=== PATIENT | male | born 1980 | race Caucasian/White ===

== ENCOUNTER 2017-07-29 16:38 | Inpatient (IN) | payer MEDICAID, SELFPAY ==
--- NOTE | 2017-07-29 16:59 | NURSING ---
Arrived to Room 213 with mother at side. Report obtained from Ursula Landin at this time.
[2017-07-29 17:31] VITALS: BP 117/65; PULSE 84; RESP 18; TEMP 36.8; BMI 21.5
[2017-07-29 17:57] VITALS: BP 117/65; PULSE 84; RESP 20; TEMP 36.8
--- NOTE | 2017-07-29 18:25 | PCM.HP.STD ---
Problem List (1) Polysubstance (including opioids) dependence, daily use Status: Acute (2) Methamphetamine use Status: Chronic (3) Mild benzodiazepine use disorder Status: Chronic (4) Nicotine dependence Status: Chronic History of Present Illness Date of Admission: 07/29/17 Chief Complaint: Admitted for heroin withdrawal The patient is a 36 year old M with history of polysubstance use is being admitted through [facility] for stabilization of acute opioid withdrawal. Patient has history of heroin use since age of 24 years, 2 g daily; last used today. Patient had other illicit drug use including methamphetamine 1 g IV daily since 19 years of age, occasional benzodiazepine Xanax 0.5 mg and alcohol use. Patient drinks about 2-3 times a week about 10 drinks, each time since age of use18 years. Patient complaint of restlessness, tremors, sweating, gooseflesh 2-3 times loose bowel movement, diarrhea and intense thirst and dehydration. Feels also muscle aches, nausea cold and clammy skin. [] Past Medical History Past Medical History (Chronic Problems): Chronic Problems Methamphetamine use (Chronic) Mild benzodiazepine use disorder (Chronic) Nicotine dependence (Chronic) Allergies No Known Allergies Allergy (Verified 07/29/17 17:37) Smoking Status: Current some day smoker Alcohol: Heavy Drugs: Heroin, Marijuana - *Family History Paternal History Items: No pertinent history Review of Systems Constitutional: Reports: Malaise, Weakness. Denies: Chills, Fever, Weight Change HEENT: Denies: Head Aches, Sinus Congestion, Sinus Drainage Cardiovascular: Denies: Chest Pain, Palpitations Respiratory: Denies: Cough, Shortness of breath at rest, Sputum production Gastrointestinal: Reports: Diarrhea, Nausea. Denies: Abdominal Pain, Hematemesis, Hematochezia, Melena, Vomiting Genitourinary: Denies: Dysuria, Incontinence Musculoskeletal: Reports: Muscle pain. Denies: Joint Pain, Joint Tenderness Skin: Denies: Rash, Wounds Neurological: Denies: Numbness, Tingling, Focal weakness Psychiatric: Denies: Anxiety, Depression, Homicidal Ideations, Suicidal Ideations Hematologic/ Lymphatic: Denies: Easy Bruising, Easy Bleeding VTE Information - Inpt Only VTE Present on Admission: No VTE Mechan Device Prophylaxis: None VTE Pharm Prophylaxis ordered?: No Reason prophylaxis not ordered:: Procedure Not Indicated - Low risk Patient Problems: Active and Suspected Problems Polysubstance (including opioids) dependence, daily use (Acute) - Physical Exam General: Alert, Oriented x3, Cooperative HEENT: Atraumatic, PERRLA, EOMI, Normocephalic Oral: Moist Mucosa Neck: Supple, No JVD, Negative Carotid Bruits Lungs: Clear to auscultation, Normal air movement, No wheeze, No rales Cardiovascular: Regular rate, Regular Rhythm, Normal S1, Normal S2, No murmurs Abdomen: Bowel Sounds Present, Soft, Non Tender, Non-Distended Extremities: No edema, Capillary Refill Less than 3 Seconds Skin: No rashes, No breakdown, - - Needle scar hernandez present over bilateral antecubital region Musculoskeletal: No Tenderness to Palpation of Joints or Extremities Neurological: Cranial nerves II-XII grossly intact Psych/Mental Status: Anxious, Restless Vital Signs Temp Pulse Resp BP 98.2 F 84 20 H 117/65 07/29/17 17:57 07/29/17 17:57 07/29/17 17:57 07/29/17 17:57 Weight: 150 lb Body Mass Index (BMI) 21.5 Assessment/Plan Active and Suspected Problems Polysubstance (including opioids) dependence, daily use (Acute) The patient is a 36 year old M with history of polysubstance use is being admitted through [facility] program for stabilization of acute opioid withdrawal. Patient has history of heroin use since age of 24 years, 2 g daily; last used today. Patient had other illicit drug use including methamphetamine 1 g IV daily since 19 years of age, occasional benzodiazepine Xanax 0.5 mg and alcohol use. Patient drinks about 2-3 times a week about 10 drinks, each time since age of use18 years. Patient complaint of restlessness, tremors, sweating, gooseflesh 2-3 times loose bowel movement, diarrhea and intense thirst and dehydration. Feels also muscle aches, nausea cold and clammy skin. 1. Acute heroin/opioids withdrawal: Patient is being admitted on [facility] protocol for stabilization. Labs ordered including U tox, hepatitis panel, HIV, B1, B12 and folic acid. CINA 15 2. Polysubstance use including methamphetamine, occasional benzodiazepine, marijuana and chronic alcohol use and dependence: On medication protocol as per [facility]. [place] protocol 3. Chronic alcohol use and dependence: Patient denies hallucinations, seizure. 4. Chronic nicotine use and dependence: On nicotine patch DVT prophylaxis low risk; no prophylaxis indicated. [] Code Visit Inpatient E&M: 14875 Init Hosp L3
--- NOTE | 2017-07-29 18:35 | HP.PCM_ITS ---
Problem List (1) Polysubstance (including opioids) dependence, daily use Status: Acute (2) Methamphetamine use Status: Chronic (3) Mild benzodiazepine use disorder Status: Chronic (4) Nicotine dependence Status: Chronic History of Present Illness Date of Admission: 07/29/17 Chief Complaint: Admitted for heroin withdrawal The patient is a 36 year old M with history of polysubstance use is being admitted through [facility] for stabilization of acute opioid withdrawal. Patient has history of heroin use since age of 24 years, 2 g daily ; last used today. Patient had other illicit drug use including methamphetamine 1 g IV daily since 19 years of age, occasional benzodiazepine Xanax 0.5 mg and alcohol use. Patient drinks about 2-3 times a week about 10 drinks, each time since age of use18 years. Patient complaint of restlessness, tremors, sweating, gooseflesh 2-3 times loose bowel movement, diarrhea and intense thirst and dehydration. Feels also muscle aches, nausea cold and clammy skin. [] Past Medical History Past Medical History (Chronic Problems): Chronic Problems Methamphetamine use (Chronic) Mild benzodiazepine use disorder (Chronic) Nicotine dependence (Chronic) Allergies No Known Allergies Allergy (Verified 07/29/17 17:37) Smoking Status: Current some day smoker Alcohol: Heavy Drugs: Heroin, Marijuana - *Family History Paternal History Items: No pertinent history Review of Systems Constitutional: Reports: Malaise, Weakness. Denies: Chills, Fever, Weight Change HEENT: Denies: Head Aches, Sinus Congestion, Sinus Drainage Cardiovascular: Denies: Chest Pain, Palpitations Respiratory: Denies: Cough, Shortness of breath at rest, Sputum production Gastrointestinal: Reports: Diarrhea, Nausea. Denies: Abdominal Pain, Hematemesis, Hematochezia, Melena, Vomiting Genitourinary: Denies: Dysuria, Incontinence Musculoskeletal: Reports: Muscle pain. Denies: Joint Pain, Joint Tenderness Skin: Denies: Rash, Wounds Neurological: Denies: Numbness, Tingling, Focal weakness Psychiatric: Denies: Anxiety, Depression, Homicidal Ideations, Suicidal Ideations Hematologic/ Lymphatic: Denies: Easy Bruising, Easy Bleeding VTE Information - Inpt Only VTE Present on Admission: No VTE Mechan Device Prophylaxis: None VTE Pharm Prophylaxis ordered?: No Reason prophylaxis not ordered:: Procedure Not Indicated - Low risk Patient Problems: Active and Suspected Problems Polysubstance (including opioids) dependence, daily use (Acute) - Physical Exam General: Alert, Oriented x3, Cooperative HEENT: Atraumatic, PERRLA, EOMI, Normocephalic Oral: Moist Mucosa Neck: Supple, No JVD, Negative Carotid Bruits Lungs: Clear to auscultation, Normal air movement, No wheeze, No rales Cardiovascular: Regular rate, Regular Rhythm, Normal S1, Normal S2, No murmurs Abdomen: Bowel Sounds Present, Soft, Non Tender, Non-Distended Extremities: No edema, Capillary Refill Less than 3 Seconds Skin: No rashes, No breakdown, - - Needle scar hernandez present over bilateral antecubital region Musculoskeletal: No Tenderness to Palpation of Joints or Extremities Neurological: Cranial nerves II-XII grossly intact Psych/Mental Status: Anxious, Restless Vital Signs Temp Pulse Resp BP 98.2 F 84 20 H 117/65 07/29/17 17:57 07/29/17 17:57 07/29/17 17:57 07/29/17 17:57 Weight: 150 lb Body Mass Index (BMI) 21.5 Assessment/Plan Active and Suspected Problems Polysubstance (including opioids) dependence, daily use (Acute) The patient is a 36 year old M with history of polysubstance use is being admitted through [facility] program for stabilization of acute opioid withdrawal. Patient has history of heroin use since age of 24 years, 2 g daily ; last used today. Patient had other illicit drug use including methamphetamine 1 g IV daily since 19 years of age, occasional benzodiazepine Xanax 0.5 mg and alcohol use. Patient drinks about 2-3 times a week about 10 drinks, each time since age of use18 years. Patient complaint of restlessness, tremors, sweating, gooseflesh 2-3 times loose bowel movement, diarrhea and intense thirst and dehydration. Feels also muscle aches, nausea cold and clammy skin. 1. Acute heroin/opioids withdrawal: Patient is being admitted on [facility] protocol for stabilization. Labs ordered including U tox, hepatitis panel, HIV , B1, B12 and folic acid. CINA 15 2. Polysubstance use including methamphetamine, occasional benzodiazepine, marijuana and chronic alcohol use and dependence: On medication protocol as per [facility]. [place] protocol 3. Chronic alcohol use and dependence: Patient denies hallucinations, seizure. 4. Chronic nicotine use and dependence: On nicotine patch DVT prophylaxis low risk; no prophylaxis indicated. [] Code Visit Inpatient E&M: 01347 Init Hosp L3
[2017-07-29] MEDS: Buprenorphine HCl 2 MG TAB.SUBL SL (18:54)
[2017-07-29] MEDS: chlordiazePOXIDE 25 MG Capsule PO ×2 (18:55→21:53)
[2017-07-29] MEDS: Dicyclomine 10 MG Capsule 20 MG PO (18:56)
[2017-07-29] MEDS: cloNIDine HCl 0.1 MG Tablet PO ×2 (18:56→21:06)
[2017-07-29] MEDS: Methocarbamol 750 MG Tablet PO (18:57)
[2017-07-29] MEDS: QUEtiapine 25 MG Tablet PO (18:57)
--- NOTE | 2017-07-29 18:59 | NURSING ---
Seizure pads on bed and telemonitor on pt at this time
[2017-07-29 19:36] VITALS: PULSE 73
[2017-07-29 19:44] LABS: Absolute Lymphocyte Count 2.24 X10^3/ul (0.83-4.51); Absolute Neutrophil Count 3.9 X10^3/uL (2.0-7.7); Basophil# 0.05 X10^3/uL; Basophil% 0.7 % (0-1); Eosinophils% 2.8 % (0-5); Hematocrit 40.6 % (40-54); Hemoglobin 13.6 g/dl (13.0-16.5); Lymphocyte # 2.24 X10^3/ul (4.0); Lymphocyte % 31.3 % (19-41); Mean Corp Hgb Conc 33.5 g/gl (32-36); Mean Corpuscular Hgb 28.7 pg (27.0-32.0); Mean Corpuscular Volume 85.7 fL (80-94); Mean Platelet Vol. 9.3 fl (6.2-12.0); Monocyte# 0.71 X10^3/uL; Monocyte% 9.9 % (0-10); Neutrophil # 3.94 X10^3/uL (2.7-7.7); Neutrophil % 55.2 % (47-70); Platelet Count 254 K/mm3 (150-450); RBC Distribution Width CV 13.7 % (11.6-14.6); RBC Distribution Width SD 42.6 fl (35.1-43.9); Red Blood Count 4.74 M/mm3 (4.6-6.2); White Blood Count 7.2 K/mm3 (4.4-11.0)
[2017-07-29 19:46] LABS: POSITIVE COUNT NO; POSITIVE DIFFERENTIAL NO; POSITIVE MORPHOLOGY NO
[2017-07-29 19:52] LABS: International Normalized Ratio 0.9; Prothrombin Time (Protime)PT. 12.1 SECONDS (11.7-14.9)
[2017-07-29 20:01] LABS: Alcohol, Blood (Medical)-Serum < 3.0 mg/dL
[2017-07-29 20:15] LABS: ALB/GLOB Ratio 0.8 RATIO (0.9-2.4); AST(SGOT) 256 U/L (15-37); Alanine Aminotransfer ALT/SGPT 507 U/L (16-61); Albumin, Serum 3.3 g/dL (3.2-5.0); Alkaline Phosphatase 95 U/L (45-117); Amylase 54 U/L (25-115); Anion Gap 5 (5-15); BUN 22 mg/dL (7-18); BUN/Creat Ratio 30.9 RATIO (10-20); Calcium,Total 8.7 mg/dL (8.5-10.1); Chloride 103 mmol/L (98-107); Creatinine, Serum 0.71 mg/dL (0.70-1.30); EST Glomerular Filtration Rate 134 mL/min (>60); Est Glom Filt Rate - Afr Amer 162 mL/min (>60); Estimated Creatinine Clearance 141.08 ml/min; Globulin 4.1 g/dL (2.2-4.2); Glucose 86 mg/dL (74-106); Lipase 132 U/L (73-393); Potassium 3.8 mmol/L (3.5-5.1); Protein, Total 7.4 g/dL (6.4-8.2); Sodium Level 140 mmol/L (136-145)
[2017-07-29 20:45] VITALS: BP 112/60; PULSE 77; RESP 18; TEMP 37; O2SAT 98
[2017-07-29 20:46] VITALS: BP 112/60; PULSE 77; RESP 18; TEMP 37
[2017-07-29 20:50] VITALS: PULSE 77; RESP 18; O2SAT 98
[2017-07-29 20:52] LABS: HIV - WCH Non-Reactive (Nonreactive); Vitamin B12 520 pg/mL (211-911)
[2017-07-29] MEDS: Pramipexole Di-HCl 0.25 MG Tablet PO (21:06)
[2017-07-29] MEDS: traZODone 50 MG Tablet PO (21:06)
[2017-07-29] MEDS: Ibuprofen 600 MG Tablet PO (21:06)
[2017-07-29] MEDS: Ondansetron ODT 4 MG Tablet PO (21:06)
--- NOTE | 2017-07-29 21:55 | NURSING ---
pt refusing tele monitor. This RN explained importance and reasoning behind the monitor but pt still refused.
[2017-07-29 22:55] LABS: Amphetamine Urine VISTA POSITIVE (<1000 ng/mL); Barbiturate Urine VISTA POSITIVE (< 200 ng/mL); Benzodiazepine Urine VISTA NEGATIVE (< 200 ng/mL); Cocaine Urine VISTA NEGATIVE (< 300 ng/mL); Ecstacy Urine VISTA NEGATIVE (< 500 ng/mL); Methadone Urine VISTA NEGATIVE (< 300 ng/mL); PCP Urine VISTA NEGATIVE (< 25 ng/mL); THC Urine VISTA POSITIVE (< 50 ng/mL); Vista UDS pH Range 8
[2017-07-30] VITALS (7 sets, daily range): BP systolic 94–126; BP diastolic 45–87; PULSE 58–87; RESP 16–20; TEMP 36.2–36.7; O2SAT 100
[2017-07-30] MEDS: Buprenorphine HCl 2 MG TAB.SUBL SL ×3 (02:19→18:34)
[2017-07-30] MEDS: chlordiazePOXIDE 25 MG Capsule PO ×5 (02:19→19:54)
[2017-07-30] MEDS: Methocarbamol 750 MG Tablet PO ×3 (02:19→21:21)
[2017-07-30] MEDS: Ondansetron ODT 4 MG Tablet PO (06:12)
--- NOTE | 2017-07-30 08:12 | PCM.PN.HOSP ---
Patient Problems: Active and Suspected Problems Polysubstance (including opioids) dependence, daily use (Acute) Subjective: Patient is a 36-year-old gentleman with history of opioid dependence and chronic alcohol abuse admitted with acute opioid withdrawal admitted to a regular nursing floor where patient is being managed with Subutex for medical stabilization 07/30/2017 patient seen complains of feeling groggy this a.m. Also complains of nausea but no vomiting Objective: GENERAL: cooperative HEENT: Clear conjunctiva, NECK; supple, normal thyroid, CHEST: Clear to auscultation bilaterally, HEART: Regular S1 S2, ABDOMEN: soft, non-tender, normoactive bowel sounds, RECTAL: deferred EXTREMITIES: No edema, no clubbing, no cyanosis. MANAGER INTEGRATION: Awake, no lateralizing signs. SKIN: Extensive tattoos Vitals/I&O's: Vital Signs Temp Pulse Resp BP Pulse Ox 97.4 F L 77 18 94/59 L 98 07/30/17 06:00 07/30/17 06:00 07/30/17 06:00 07/30/17 06:00 07/29/17 20:50 Oxygen Delivery Method Room Air Weight: 68.039 kg Body Mass Index (BMI) 21.5 Intake and Output for Last 24 Hours 07/28/17 07/29/17 07/30/17 23:59 23:59 23:59 Intake Total 840 / 840 Balance 840 / 840 Laboratory Results 07/29/17 19:05: PT 12.1, INR 0.9 07/29/17 19:05: Sodium 140, Potassium 3.8, Chloride 103, Carbon Dioxide 32.0, Anion Gap 5, BUN 22 H, Creatinine 0.71, Estim Creat Clear Calc 141.08, Est GFR (MDRD) Af Amer 162, Est GFR (MDRD) Non-Af 134, BUN/Creatinine Ratio 30.9 H, Glucose 86, Calcium 8.7, Magnesium 2.0, Total Bilirubin 0.20, AST 256 H, ALT 507 H, Alkaline Phosphatase 95, Total Protein 7.4, Albumin 3.3, Globulin 4.1, Albumin/Globulin Ratio 0.8 L, Amylase 54, Lipase 132, Folate 19.30 07/29/17 19:05: Ethyl Alcohol < 3.0 07/29/17 19:05: WBC 7.2, RBC 4.74, Hgb 13.6, Hct 40.6, MCV 85.7, MCH 28.7, MCHC 33.5, RDW 13.7, RDW Differential 42.6, Plt Count 254, MPV 9.3, Immature Gran % (Auto) 0.100, Neut % (Auto) 55.2, Lymph % (Auto) 31.3, [place] % (Auto) 9.9, Eos % (Auto) 2.8, Baso % (Auto) 0.7, Absolute Neuts (auto) 3.9, Absolute Lymphs (auto) 2.24, Total Counted Not Reportable 07/29/17 19:05: Vitamin B12 520, HIV 1&2 Antibody Non-Reactive 07/29/17 19:05: Whole Bld Vitamin B1 Pending, Hepatitis A IgM Ab Pending, Hep Bs Antigen Pending, Hep B Core IgM Ab Pending, Hepatitis C Ab (EIA) Pending 07/29/17 21:45: Urine Opiates Screen POSITIVE H, Urine Methadone Screen NEGATIVE, Ur Barbiturates Screen POSITIVE H, Ur Phencyclidine Scrn NEGATIVE, Ur Amphetamines Screen POSITIVE H, U Methamphetamin-MDMA NEGATIVE, U Benzodiazepines Scrn NEGATIVE, Urine Cocaine Screen NEGATIVE, U Cannabinoids Screen POSITIVE H, Ur Drug Screen Comment Current Medications Acetaminophen (Tylenol) 500 mg PO Q4H PRN PRN PRN Reason: Temp > 100.4 F Al Hydroxide/Mg Hydroxide (Mylanta Ii) 30 ml PO Q6H PRN PRN PRN Reason: dyspesia Bisacodyl (Dulcolax) 10 mg RECTAL DAILY PRN PRN Reason: Constipation Buprenorphine HCl (Buprenorphine Hcl) 4 mg SL Q8H GILBERTO PRN Reason: Taper Stop: 08/01/17 22:29 Last Admin: 07/30/17 02:19 Dose: 4 mg Chlordiazepoxide (Librium) 25 mg PO Q6H PRN PRN PRN Reason: Anxiety Score 2-3/3 Chlordiazepoxide (Librium) 25 mg PO Q4H [facility] Stop: 07/30/17 14:31 Last Admin: 07/30/17 06:08 Dose: 25 mg Clonidine (Catapres) 0.1 mg PO Q2H PRN PRN PRN Reason: Hot/Cold Sweats or Anxiety Last Admin: 07/29/17 21:06 Dose: 0.1 mg Dicyclomine HCl (Bentyl) 20 mg PO Q6H PRN PRN PRN Reason: Abdomnial Discomfort Last Admin: 07/29/17 18:56 Dose: 20 mg Folic Acid (Folic Acid) 1 mg PO DAILY@0800 [facility] Hydroxyzine HCl (Vistaril) 50 mg IM Q6H PRN PRN PRN Reason: Breakthrough Anxiety Hydroxyzine Pamoate (Vistaril) 50 mg PO Q6H PRN PRN PRN Reason: Mild Anxiety (score 1/3) Last Admin: 07/29/17 21:06 Dose: 50 mg Ibuprofen (Motrin) 600 mg PO Q8H PRN PRN PRN Reason: Mild-Moderate Pain (1-5/10) Last Admin: 07/29/17 21:06 Dose: 600 mg Loperamide HCl (Imodium) 2 - 4 mg PO UD PRN PRN Reason: LOOSE STOOLS Methocarbamol (Methocarbamol) 750 mg PO Q6H PRN PRN PRN Reason: Muscle Aches Last Admin: 07/30/17 02:19 Dose: 750 mg Multivitamins/Minerals (Multivitamin With Minerals) [facility] Nicotine (Nicoderm Cq (Pbkc)) 21 mg TRANSDERM. DAILY [facility] Last Admin: 07/29/17 18:56 Dose: 21 mg Ondansetron HCl (Zofran Odt) 4 mg PO Q6H PRN PRN PRN Reason: NAUSEA Last Admin: 07/30/17 06:12 Dose: 4 mg Pramipexole Dihydrochloride (Mirapex) 0.25 mg PO Q12H PRN PRN PRN Reason: Restless Legs Last Admin: 07/29/17 21:06 Dose: 0.25 mg Quetiapine Fumarate (Seroquel) 25 mg PO Q6H PRN PRN PRN Reason: Moderate Anxiety (score 2/3) Last Admin: 07/29/17 18:57 Dose: 25 mg Senna (Senokot) 1 tablet PO QHS PRN PRN Reason: Constipation Sodium Chloride () 5 - 30 ml IV UD PRN PRN Reason: SALINE FLUSH Thiamine HCl (Vitamin B1) 100 mg PO DAILYCM [facility] Trazodone HCl (Desyrel) 50 mg PO QHS GILBERTO Last Admin: 07/29/17 21:06 Dose: 50 mg Assessment/Plan Active and Suspected Problems Polysubstance (including opioids) dependence, daily use (Acute) Patient is a 36-year-old gentleman with history of opioid dependence and chronic alcohol abuse admitted with acute opioid withdrawal admitted to a regular nursing floor where patient is being managed with Subutex for medical stabilization 1. Acute opioid withdrawal admitted to regular nursing floor for medical stabilization using Subutex X Chronic alcohol use and dependence placed on DT precautions 3. Polysubstance abuse including methamphetamine benzos Castellano chronic alcohol use as well as O. Patient was counseled on cessation 4. Tobacco dependence counseled on cessation, offered nicotine patch for tobacco cravings 5. DVT prophylaxis low risk did encourage early ambulation Code Visit Inpatient E&M: 15468 Subs Hosp L3
--- NOTE | 2017-07-30 08:19 | PN_ITS ---
Patient Problems: Active and Suspected Problems Polysubstance (including opioids) dependence, daily use (Acute) Subjective: Patient is a 36-year-old gentleman with history of opioid dependence and chronic alcohol abuse admitted with acute opioid withdrawal admitted to a regular nursing floor where patient is being managed with Subutex for medical stabilization 07/30/2017 patient seen complains of feeling groggy this a.m. Also complains of nausea but no vomiting Objective: GENERAL: cooperative HEENT: Clear conjunctiva, NECK; supple, normal thyroid, CHEST: Clear to auscultation bilaterally, HEART: Regular S1 S2, ABDOMEN: soft, non-tender, normoactive bowel sounds, RECTAL: deferred EXTREMITIES: No edema, no clubbing, no cyanosis. CHANNEL WORKER: Awake, no lateralizing signs. SKIN: Extensive tattoos Vitals/I&O's: Vital Signs Temp Pulse Resp BP Pulse Ox 97.4 F L 77 18 94/59 L 98 07/30/17 06:00 07/30/17 06:00 07/30/17 06:00 07/30/17 06:00 07/29/17 20:50 Oxygen Delivery Method Room Air Weight: 68.039 kg Body Mass Index (BMI) 21.5 Intake and Output for Last 24 Hours 07/28/17 07/29/17 07/30/17 23:59 23:59 23:59 Intake Total 840 / 840 Balance 840 / 840 Laboratory Results 07/29/17 19:05: PT 12.1, INR 0.9 07/29/17 19:05: Sodium 140, Potassium 3.8, Chloride 103, Carbon Dioxide 32.0, Anion Gap 5, BUN 22 H, Creatinine 0.71, Estim Creat Clear Calc 141.08, Est GFR ( MDRD) Af Amer 162, Est GFR (MDRD) Non-Af 134, BUN/Creatinine Ratio 30.9 H, Glucose 86, Calcium 8.7, Magnesium 2.0, Total Bilirubin 0.20, AST 256 H, ALT 507 H, Alkaline Phosphatase 95, Total Protein 7.4, Albumin 3.3, Globulin 4.1, Albumin/Globulin Ratio 0.8 L, Amylase 54, Lipase 132, Folate 19.30 07/29/17 19:05: Ethyl Alcohol < 3.0 07/29/17 19:05: WBC 7.2, RBC 4.74, Hgb 13.6, Hct 40.6, MCV 85.7, MCH 28.7, MCHC 33.5, RDW 13.7, RDW Differential 42.6, Plt Count 254, MPV 9.3, Immature Gran % ( Auto) 0.100, Neut % (Auto) 55.2, Lymph % (Auto) 31.3, [place] % (Auto) 9.9, Eos % ( Auto) 2.8, Baso % (Auto) 0.7, Absolute Neuts (auto) 3.9, Absolute Lymphs (auto) 2.24, Total Counted Not Reportable 07/29/17 19:05: Vitamin B12 520, HIV 1&2 Antibody Non-Reactive 07/29/17 19:05: Whole Bld Vitamin B1 Pending, Hepatitis A IgM Ab Pending, Hep Bs Antigen Pending, Hep B Core IgM Ab Pending, Hepatitis C Ab (EIA) Pending 07/29/17 21:45: Urine Opiates Screen POSITIVE H, Urine Methadone Screen NEGATIVE , Ur Barbiturates Screen POSITIVE H, Ur Phencyclidine Scrn NEGATIVE, Ur Amphetamines Screen POSITIVE H, U Methamphetamin-MDMA NEGATIVE, U Benzodiazepines Scrn NEGATIVE, Urine Cocaine Screen NEGATIVE, U Cannabinoids Screen POSITIVE H, Ur Drug Screen Comment Current Medications Acetaminophen (Tylenol) 500 mg PO Q4H PRN PRN PRN Reason: Temp > 100.4 F Al Hydroxide/Mg Hydroxide (Mylanta Ii) 30 ml PO Q6H PRN PRN PRN Reason: dyspesia Bisacodyl (Dulcolax) 10 mg RECTAL DAILY PRN PRN Reason: Constipation Buprenorphine HCl (Buprenorphine Hcl) 4 mg SL Q8H GILBERTO PRN Reason: Taper Stop: 08/01/17 22:29 Last Admin: 07/30/17 02:19 Dose: 4 mg Chlordiazepoxide (Librium) 25 mg PO Q6H PRN PRN PRN Reason: Anxiety Score 2-3/3 Chlordiazepoxide (Librium) 25 mg PO Q4H [facility] Stop: 07/30/17 14:31 Last Admin: 07/30/17 06:08 Dose: 25 mg Clonidine (Catapres) 0.1 mg PO Q2H PRN PRN PRN Reason: Hot/Cold Sweats or Anxiety Last Admin: 07/29/17 21:06 Dose: 0.1 mg Dicyclomine HCl (Bentyl) 20 mg PO Q6H PRN PRN PRN Reason: Abdomnial Discomfort Last Admin: 07/29/17 18:56 Dose: 20 mg Folic Acid (Folic Acid) 1 mg PO DAILY@0800 [facility] Hydroxyzine HCl (Vistaril) 50 mg IM Q6H PRN PRN PRN Reason: Breakthrough Anxiety Hydroxyzine Pamoate (Vistaril) 50 mg PO Q6H PRN PRN PRN Reason: Mild Anxiety (score 1/3) Last Admin: 07/29/17 21:06 Dose: 50 mg Ibuprofen (Motrin) 600 mg PO Q8H PRN PRN PRN Reason: Mild-Moderate Pain (1-5/10) Last Admin: 07/29/17 21:06 Dose: 600 mg Loperamide HCl (Imodium) 2 - 4 mg PO UD PRN PRN Reason: LOOSE STOOLS Methocarbamol (Methocarbamol) 750 mg PO Q6H PRN PRN PRN Reason: Muscle Aches Last Admin: 07/30/17 02:19 Dose: 750 mg Multivitamins/Minerals ([facility]ivitamin With Minerals) [facility] Nicotine (Nicoderm Cq (Pbkc)) 21 mg TRANSDERM. DAILY [facility] Last Admin: 07/29/17 18:56 Dose: 21 mg Ondansetron HCl (Zofran Odt) 4 mg PO Q6H PRN PRN PRN Reason: NAUSEA Last Admin: 07/30/17 06:12 Dose: 4 mg Pramipexole Dihydrochloride (Mirapex) 0.25 mg PO Q12H PRN PRN PRN Reason: Restless Legs Last Admin: 07/29/17 21:06 Dose: 0.25 mg Quetiapine Fumarate (Seroquel) 25 mg PO Q6H PRN PRN PRN Reason: Moderate Anxiety (score 2/3) Last Admin: 07/29/17 18:57 Dose: 25 mg Senna (Senokot) 1 tablet PO QHS PRN PRN Reason: Constipation Sodium Chloride () 5 - 30 ml IV UD PRN PRN Reason: SALINE FLUSH Thiamine HCl (Vitamin B1) 100 mg PO DAILYCM [facility] Trazodone HCl (Desyrel) 50 mg PO QHS GILBERTO Last Admin: 07/29/17 21:06 Dose: 50 mg Assessment/Plan Active and Suspected Problems Polysubstance (including opioids) dependence, daily use (Acute) Patient is a 36-year-old gentleman with history of opioid dependence and chronic alcohol abuse admitted with acute opioid withdrawal admitted to a regular nursing floor where patient is being managed with Subutex for medical stabilization 1. Acute opioid withdrawal admitted to regular nursing floor for medical stabilization using Subutex X Chronic alcohol use and dependence placed on DT precautions 3. Polysubstance abuse including methamphetamine benzos Castellano chronic alcohol use as well as O. Patient was counseled on cessation 4. Tobacco dependence counseled on cessation, offered nicotine patch for tobacco cravings 5. DVT prophylaxis low risk did encourage early ambulation Code Visit Inpatient E&M: 22375 Subs Hosp L3
[2017-07-30] MEDS: Thiamine Hydrochloride 100 MG Tablet PO (08:28)
[2017-07-30] MEDS: Multivitamins,Ther W-Minerals Tablet 1 TABLET PO (08:28)
[2017-07-30] MEDS: Folic Acid 1 MG Tablet PO (08:28)
[2017-07-30] MEDS: Ibuprofen 600 MG Tablet PO (08:30)
[2017-07-30] MEDS: Acetaminophen 500 MG Tablet PO ×2 (13:42→21:22)
[2017-07-30] MEDS: Pramipexole Di-HCl 0.25 MG Tablet PO (18:44)
[2017-07-30] MEDS: traZODone 50 MG Tablet PO (21:20)
[2017-07-30] MEDS: Dicyclomine 10 MG Capsule 20 MG PO (21:21)
[2017-07-30] MEDS: cloNIDine HCl 0.1 MG Tablet PO (21:22)
[2017-07-30] MEDS: Senna Tablet 1 TABLET PO (21:39)
[2017-07-31] VITALS (9 sets, daily range): BP systolic 109–125; BP diastolic 58–76; PULSE 67–98; RESP 16–18; TEMP 36.4–37; O2SAT 97–99
[2017-07-31] MEDS: Buprenorphine HCl 2 MG TAB.SUBL SL ×3 (03:18→23:00)
--- NOTE | 2017-07-31 07:18 | PN_ITS ---
Patient Problems: Active and Suspected Problems Polysubstance (including opioids) dependence, daily use (Acute) Subjective: Patient was reported to be very anxious during the night Objective: GENERAL: cooperative HEENT: Clear conjunctiva, NECK; supple, normal thyroid, CHEST: Clear to auscultation bilaterally, HEART: Regular S1 S2, ABDOMEN: soft, non-tender, normoactive bowel sounds, RECTAL: deferred EXTREMITIES: No edema, no clubbing, no cyanosis. 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 SKIN: Extensive tattoos Vitals/I&O's: Vital Signs Temp Pulse Resp BP Pulse Ox 97.7 F L 67 18 109/58 L 97 07/31/17 03:13 07/31/17 03:13 07/31/17 03:13 07/31/17 03:13 07/31/17 03:16 Oxygen Delivery Method Room Air Weight: 68.039 kg Body Mass Index (BMI) 21.5 Intake and Output for Last 24 Hours 07/29/17 07/30/17 07/31/17 23:59 23:59 23:59 Intake Total 2190 / 2190 760 / 760 Balance 2190 / 2190 760 / 760 Current Medications Acetaminophen (Tylenol) 500 mg PO Q4H PRN PRN PRN Reason: Temp > 100.4 F Last Admin: 07/30/17 21:22 Dose: 500 mg Al Hydroxide/Mg Hydroxide (Mylanta Ii) 30 ml PO Q6H PRN PRN PRN Reason: dyspesia Bisacodyl (Dulcolax) 10 mg RECTAL DAILY PRN PRN Reason: Constipation Buprenorphine HCl (Buprenorphine Hcl) 2 mg SL Q8H GILBERTO PRN Reason: Taper Stop: 08/01/17 22:29 Last Admin: 07/31/17 03:18 Dose: 2 mg Chlordiazepoxide (Librium) 25 mg PO Q6H PRN PRN PRN Reason: Anxiety Score 2-3/3 Last Admin: 07/30/17 19:54 Dose: 25 mg Clonidine (Catapres) 0.1 mg PO Q2H PRN PRN PRN Reason: Hot/Cold Sweats or Anxiety Last Admin: 07/30/17 21:22 Dose: 0.1 mg Dicyclomine HCl (Bentyl) 20 mg PO Q6H PRN PRN PRN Reason: Abdomnial Discomfort Last Admin: 07/30/17 21:21 Dose: 20 mg Folic Acid (Folic Acid) 1 mg PO DAILY@0800 [facility] Last Admin: 07/30/17 08:28 Dose: 1 mg Hydroxyzine HCl (Vistaril) 50 mg IM Q6H PRN PRN PRN Reason: Breakthrough Anxiety Hydroxyzine Pamoate (Vistaril) 50 mg PO Q6H PRN PRN PRN Reason: Mild Anxiety (score 1/3) Last Admin: 07/30/17 21:22 Dose: 50 mg Ibuprofen (Motrin) 600 mg PO Q8H PRN PRN PRN Reason: Mild-Moderate Pain (1-5/10) Last Admin: 07/30/17 08:30 Dose: 600 mg Loperamide HCl (Imodium) 2 - 4 mg PO UD PRN PRN Reason: LOOSE STOOLS Methocarbamol (Methocarbamol) 750 mg PO Q6H PRN PRN PRN Reason: Muscle Aches Last Admin: 07/30/17 21:21 Dose: 750 mg [facility]ivitamins/Minerals ([facility]) [facility] Last Admin: 07/30/17 08:28 Dose: 1 tablet Nicotine (Nicoderm Cq (Pbkc)) 21 mg TRANSDERM. DAILY [facility] Last Admin: 07/30/17 11:04 Dose: 21 mg Ondansetron HCl (Zofran Odt) 4 mg PO Q6H PRN PRN PRN Reason: NAUSEA Last Admin: 07/30/17 06:12 Dose: 4 mg Pramipexole Dihydrochloride (Mirapex) 0.25 mg PO Q12H PRN PRN PRN Reason: Restless Legs Last Admin: 07/30/17 18:44 Dose: 0.25 mg Quetiapine Fumarate (Seroquel) 25 mg PO Q6H PRN PRN PRN Reason: Moderate Anxiety (score 2/3) Last Admin: 07/29/17 18:57 Dose: 25 mg Senna (Senokot) 1 tablet PO QHS PRN PRN Reason: Constipation Last Admin: 07/30/17 21:39 Dose: 1 tablet Sodium Chloride () 5 - 30 ml IV UD PRN PRN Reason: SALINE FLUSH Thiamine HCl ([facility]itamin B1) [facility] Last Admin: 07/30/17 08:28 Dose: 100 mg Trazodone HCl (Desyrel) 50 mg PO QHS [facility] Last Admin: 07/30/17 21:20 Dose: 50 mg Assessment/Plan Active and Suspected Problems Polysubstance (including opioids) dependence, daily use (Acute) Patient is a 36-year-old gentleman with history of opioid dependence and chronic alcohol abuse admitted with acute opioid withdrawal admitted to a regular nursing floor where patient is being managed with Subutex for medical stabilization 1. Acute opioid withdrawal admitted to regular nursing floor for medical stabilization using Subutex 2. Chronic alcohol use and dependence placed on DT precautions 3. Polysubstance abuse including methamphetamine benzos opioids as well as alcohol; patient was counseled on cessation 4. Tobacco dependence counseled on cessation, offered nicotine patch for tobacco cravings 5. DVT prophylaxis low risk did encourage early ambulation Code Visit Inpatient E&M: 44929 Subs Hosp L2
[2017-07-31] MEDS: Thiamine Hydrochloride 100 MG Tablet PO (09:54)
[2017-07-31] MEDS: Multivitamins,Ther W-Minerals Tablet 1 TABLET PO (09:54)
[2017-07-31] MEDS: Folic Acid 1 MG Tablet PO (09:54)
[2017-07-31] MEDS: Ibuprofen 600 MG Tablet PO ×2 (09:56→18:37)
[2017-07-31] MEDS: chlordiazePOXIDE 25 MG Capsule PO ×2 (09:56→20:18)
[2017-07-31] MEDS: Dicyclomine 10 MG Capsule 20 MG PO (09:56)
[2017-07-31] MEDS: Pramipexole Di-HCl 0.25 MG Tablet PO (10:05)
[2017-07-31] MEDS: Acetaminophen 500 MG Tablet PO (15:08)
[2017-07-31] MEDS: Methocarbamol 750 MG Tablet PO ×2 (15:08→23:11)
[2017-07-31] MEDS: cloNIDine HCl 0.1 MG Tablet PO (18:37)
[2017-07-31] MEDS: Senna Tablet 1 TABLET PO (20:18)
[2017-07-31] MEDS: QUEtiapine 25 MG Tablet PO (20:18)
[2017-07-31] MEDS: traZODone 50 MG Tablet PO (23:00)
[2017-08-01 03:55] VITALS: BP 112/56; PULSE 74; RESP 16; TEMP 36.7
[2017-08-01 08:32] VITALS: BP 115/77; PULSE 74; RESP 18; TEMP 36.5; O2SAT 99
[2017-08-01] MEDS: Folic Acid 1 MG Tablet PO (08:36)
[2017-08-01] MEDS: Multivitamins,Ther W-Minerals Tablet 1 TABLET PO (08:36)
[2017-08-01] MEDS: Thiamine Hydrochloride 100 MG Tablet PO (08:36)
[2017-08-01] MEDS: Ibuprofen 600 MG Tablet PO (08:36)
[2017-08-01] MEDS: Pramipexole Di-HCl 0.25 MG Tablet PO (08:37)
[2017-08-01 10:00] VITALS: BP 115/77; PULSE 74; RESP 18; TEMP 36.5
[2017-08-01] MEDS: Buprenorphine HCl 2 MG TAB.SUBL SL (10:33)
--- NOTE | 2017-08-01 11:29 | PCM.DC ---
- Discharge Diagnoses Current Active Problems: Current Active and Chronic Problems Polysubstance (including opioids) dependence, daily use (Acute) Methamphetamine use (Chronic) Mild benzodiazepine use disorder (Chronic) Nicotine dependence (Chronic) You will use the following diet at home:: Regular Discharge Activity: Return to Normal Activity Allergies/Adverse Reactions: Allergies No Known Allergies Allergy (Verified 07/29/17 17:37) Primary Care Physician: Care Physician,No Primary [Primary Care Provider] - Within 2 Weeks Proposed Discharge Date: 08/01/17
--- NOTE | 2017-08-01 11:33 | DS.PCM_ITS ---
Discharge Date and Diagnosis Date of Admission: 07/29/17 Date of Discharge: 08/01/17 - Primary Discharge Diagnosis Active and Suspected Problems Polysubstance (including opioids) dependence, daily use (Acute) - Secondary Discharge Diagnosis Chronic Problems Methamphetamine use (Chronic) Mild benzodiazepine use disorder (Chronic) Nicotine dependence (Chronic) Hospital Course and Treatment Summary of Care Provided: This is a 36 year-old male with past medical history of drug use disorder opiates and alcohol . Admitted to the hospital with symptoms of opiate withdrawal he was placed on the [facility] opiate withdrawal protocol. His symptoms have now resolved. The patient is being discharged and he will go to an inpatient drug rehabilitation program in [facility]. exam at the time of discharge; vital signs were stable. He was alert and oriented to time place and person. He did not appear to be any form of distress. S1 and S2 heard no murmur or gallop Lung exam was clear to auscultation with no adventitious sounds. Abdomen was soft nontender with normal bowel sounds. extremity exam did not reveal any edema, palpable pulses bilaterally. Neurologic exam was grossly intact. Discharge Diet: No Restrictions Discharge Activity: Return to Normal Activity Primary Care Physician: Care Physician,No Primary [Primary Care Provider] - Within 2 Weeks Meaningful Use Info Meaningful Use Diagnoses (Choose all that apply): None applicable Code Visit Inpatient E&M: 25826 Disch Hosp
[2017-08-01 12:04] VITALS: BP 123/76; PULSE 80; RESP 18; TEMP 36.8; O2SAT 99
[2017-08-01 12:16] VITALS: BP 123/76; PULSE 80; RESP 18; TEMP 36.8; O2SAT 99
[2017-08-05 09:09] LABS: HEPATITIS B SURFACE AG Negative (Negative); Hepatitis A IgM Antibody Negative (Negative); Hepatitis B Core AB IgM Positive (Negative)
[2017-08-05 11:46] LABS: Vitamin B1, Thiamine 159.2 nmol/L (66.5-200.0)
[2017-08-05 11:49] LABS: Hep C Antibodies >11.0 s/co ratio (0.0-0.9)
== END 2017-08-01 12:18 | disposition home or self-care (01) | DRG 435 ==
PROVIDERS: Admitting Provider Internal Medicine; Visit Provider Internal Medicine
DX: F11.23 Opioid dependence with withdrawal (principal); F10.20 Alcohol dependence, uncomplicated; F13.10 Sedative, hypnotic or anxiolytic abuse, uncomplicated; F17.200 Nicotine dependence, unspecified, uncomplicated; F19.90 Other psychoactive substance use, unspecified, uncomplicated; Y90.9 Presence of alcohol in blood, level not specified
CPT/HCPCS: 80053; 80074; 80307; 80320; 82150; 82607; 82746; 83690; 83735; 84425; 85025; 85610; 86703; 99406; G0480